=== PATIENT | male | born 1970 | race Caucasian/White ===

== ENCOUNTER → 2020-06-05 15:48 | Outpatient (CLI) | payer OTHER, SELFPAY ==
--- NOTE | 2020-06-05 | ECG_ITS ---
APPROVED REPORT Exam: Resting ECG HR:77 bpm ECG Measurements Heart Rate 77 AXES CA 144 P 52 QRSd 104 QRS -36 QT 400 T 51 QTc 452 Conclusion Sinus rhythm with occasional premature ventricular complexes Left axis deviation Abnormal ECG Electronically signed by : Teofilo Lennon, 06/06/2020 21:17:59
== END ==
PROVIDERS: PCP Family Medicine; Visit Provider Family Medicine
DX: I49.9 Cardiac arrhythmia, unspecified (principal)
CPT/HCPCS: 93005; 93225; 93226

== ENCOUNTER → 2020-06-18 10:46 | Outpatient (CLI) | payer OTHER, SELFPAY ==
--- NOTE | 2020-06-18 10:52 | CA_ITS ---
APPROVED REPORT EXAM: Comprehensive 2D, Doppler, and color-flow Echocardiogram Materials Supervisor: Jolly Jason RT(R) Ht: 6 ft 2 in Wt: 370lbs BSA: 2.82 BP: 131/87 mmHg Indications: smoker, PVC, h/o gastric bypass, NAZIA, abnormal EKG Echo Enhancing Agent Indication: Endocardial border delineation Agent(s) / Amount(s) Used: Definity 2 cc 2D Dimensions LVOT 1.87 cm (M/F) 1.5-2.5 LA Volume 37.80 mL LA Volume Index 13.40 mL/m2 (M/F) 16-34 M-Mode Dimensions RVDd 2.93 cm (0.9-2.6) LA Diam 3.11 cm (1.9-4.0) LVDd 4.98 cm (3.5-5.7) Ao Diam 3.79 cm (2.0-3.7) LVDs 3.99 cm (3.5-5.7) IVSd 1.03 cm (0.6-1.1) PWd 1.14 cm (0.6-1.1) EF (Teich) 40.60% FS 19.90% EDV (Teich) 117.10 mL ESV (Teich) 69.60 mL LV Diastology E Decel Time 173.00 (160-240 msec) E/A Ratio 0.8 MED E' 9.30 (< 7 cm/sec) E'/MED E' Ratio 6.77 (>14) LAT E' 12.30 (<10 cm/sec) E/LAT E' Ratio 5.12 (>14) Mitral Valve MV E Max Abhay. 63.00 (40-130 cm/s) MV A Velocity 81.00 (40-130 cm/s) E/A Ratio 0.78 MV Decel. Time 173.00 (160-240 ms) MV PHT 51.00 ms Left Ventricle Left atrium is mildly enlarged, left ventricle is normal size, left ventricle wall thickness is upper limit of normal, visually estimated ejection fraction 50%, with no regional wall motion abnormality, Definity contrast was utilized to delineate the endocardial surfaces. Doppler evidence of impaired LV relaxation seen, tissue Doppler is inconclusive Right Ventricle Right atrium and right ventricle are normal size and contractility. Aortic Valve Aortic valve is minimally thickened and fibrosed, there is no aortic stenosis or aortic insufficiency. Mitral Valve Mitral valve is grossly normal, there is trace mitral regurgitation. Tricuspid Valve Tricuspid grossly normal, there is trace tricuspid regurgitation, tricuspid regurgitation jet velocity is inadequate for calculation of the right ventricular systolic pressure. Pulmonic Valve Pulmonic valve is poorly visualized. Great Vessels Aortic root is normal size. Pericardium No significant pericardial effusion noted. Conclusion 1. Mildly enlarged left atrium, normal left ventricular size, visually estimated ejection fraction 50% with no regional wall motion abnormality, there is no left ventricular thrombus seen, Definity contrast was placed to delineate the endocardial surfaces, Doppler evidence of impaired LV relaxation seen. 2. Trace mitral and tricuspid regurgitation. 3. No significant pericardial effusion noted. Electronically signed by : Aashish Humphrey, 06/18/2020 21:18:22
== END ==
PROVIDERS: PCP Family Medicine; Visit Provider Family Medicine
DX: I49.8 Other specified cardiac arrhythmias (principal); I44.4 Left anterior fascicular block; I49.3 Ventricular premature depolarization; R94.31 Abnormal electrocardiogram [ECG] [EKG]; F17.200 Nicotine dependence, unspecified, uncomplicated; G47.33 Obstructive sleep apnea (adult) (pediatric); Z98.84 Bariatric surgery status
CPT/HCPCS: 93306; Q9957

== ENCOUNTER → 2020-07-16 20:07 | Outpatient (CLI) | payer OTHER, SELFPAY | PROVIDERS: PCP Family Medicine; Visit Provider Nurse Practitioner Family | DX: G47.33 Obstructive sleep apnea (adult) (pediatric) (principal); G47.36 Sleep related hypoventilation in conditions classified elsewhere | CPT/HCPCS: 95810 ==

== ENCOUNTER → 2020-08-15 07:41 | Outpatient (CLI) | payer SELFPAY ==
--- NOTE | 2020-08-15 07:41 | CT_ITS ---
PROCEDURE: CT HEART W CALCIUM SCORE CLINICAL HISTORY: abnormal ekg COMPARISON: No exams were available for comparison TECHNIQUE: Axial images obtained with sagittal and coronal reformats. All CT scans at the facility use one or more dose reduction, viz: automated exposure control, ma/kV adjustment per patient size (including targeted exams where dose is matched to indication, i.e. head), or iterative reconstruction technique. FINDINGS: The coronary artery calcium score is 630. Extensive calcific plaque burden with very high cardiovascular disease risk IMPRESSION: Extensive calcific plaque burden with very high cardiovascular disease risk Dictated by: Mihai Sears MD 08/15/2020 16:19 Mihai Sears MD in [place] 08/15/2020 16:19
== END ==
PROVIDERS: PCP Family Medicine; Visit Provider Internal Medicine Cardiovascular Disease
DX: Z13.6 Encounter for screening for cardiovascular disorders (principal); R94.31 Abnormal electrocardiogram [ECG] [EKG]; I44.4 Left anterior fascicular block; I49.3 Ventricular premature depolarization; I49.8 Other specified cardiac arrhythmias; F17.200 Nicotine dependence, unspecified, uncomplicated; G47.33 Obstructive sleep apnea (adult) (pediatric); Z98.84 Bariatric surgery status
CPT/HCPCS: 75571

== ENCOUNTER → 2020-08-20 20:13 | Outpatient (CLI) | payer OTHER, SELFPAY | PROVIDERS: PCP Family Medicine; Visit Provider Nurse Practitioner Family | DX: G47.33 Obstructive sleep apnea (adult) (pediatric) (principal); R06.83 Snoring; E66.9 Obesity, unspecified | CPT/HCPCS: 95811 ==

== ENCOUNTER → 2020-09-12 07:43 | Outpatient (CLI) | payer OTHER, SELFPAY ==
--- NOTE | 2020-09-12 07:45 | NM_ITS ---
APPROVED REPORT Exam: Nuclear Stress Test Indication: chest pain..palpitations..abn ekg Patient Location: Outpatient Stress Tech: Deloris Giles [facility] Tech:MONIKA Alejo RT(R)(N) Ht: 6 ft 2 in Wt: 375 lbs HR: 72 bpm BP: 106/66 mmHg BSA: 2.84 m2 BMI: 48.1 History: chest pain..palpitations..abn ekg Procedure: Patient exercised on Mick protocol 6 minutes and sec, resting heart rate 72 bpm, resting blood pressure 106/66 mmHg, with exercise maximum heart rate achived was 161 bpm which is 95 % of the maximum predicted heart rate and blood pressure was 170/78 mmHg. Patient denied any complaint of chest pain. Patient has Adequate exercise capacity, achieved 7.0 METs of workload on treadmill, the blood pressure response to exercise was Adequate. pt was unable to lay on his belly for the prone imaging Electrocardiogram Resting electrocardiogram shows sinus rhythm, with exercise there is less than 1.[address] segment depression noted from the baseline EKG. The EKG portion of the exercise Myoview is negative for ischemia. Cardiac Stress and Resting SPECT Images: Cardiac Stress and Resting SPECT images were obtained using technetium 99m Myoview 32.3 mCi stress and 10.03 mCi at rest. Gated SPECT for analysis of segmental wall motion and calculation of the ejection fraction also done. Cardiac stress and resting SPECT images show a partial reversible defect involving the inferior wall consistent with mixed ischemia and scar, computer derived ejection fraction is 50% with moderate inferior wall hypokinesis, right ventricle is normal size and contractility. Conclusion: 1. The EKG portion of the exercise Myoview is negative for ischemia, patient has adequate exercise capacity achieved 7 mets of workload on treadmill, the blood pressure response to exercise was adequate, test was stopped due to shortness of breath patient had complained of chest pain 2. Scintigraphic evidence of mixed ischemia and scar involving a moderate sized area in the inferior wall, computer derived ejection fraction 50% with segmental wall motion abnormality described above, right ventricle is normal size and contractility. 3. Abnormal exercise Myoview study. Electronically signed by : Aashish Humphrey MD 09/12/2020 13:56:57
--- NOTE | 2020-09-12 09:55 | CA_ITS ---
APPROVED REPORT Exam: Exercise Treadmill Technologist: Deloris Giles, Ht: 6 ft 2 in Wt: 371 lbs BSA: 2.83 m2 HR: 72 bpm BP: 106/66 mmHg Medical History Medications: Aspirin,,,,, Vitamin B Complex,,,,, CetIRazine,,,,, Cariprazine,,,,, Stress Test Details Test: Mick HR Resting HR: 80 bpm Max Heart Rate (APMHR): 170.577665 bpm Max HR Achieved: 161 bpm Target HR (85% APMHR): 144.818014 bpm % of APMHR: 94.71 Recovery HR: 98 bpm BP Resting BP: 103/59 mmHg Max BP: 170/78 mmHg Recovery BP: 119.0/70.0 mmHg ECG Resting ECG: NSR, slow R wave progression, NS ST-T abn inferiorly Clinical Exercise duration: 06:01 min Highest Stage Achieved: Exercise capacity: 7.0 METs Stress ECG Conclusion Exercised 6:00 on Mick Protocol Max HR: 161 % of PM: 95% Max BP: 170/78 MET's: 7.0 Stopped due to: SOA, Fatigue Symptoms: No CP Arrhythmias/Ectopy: Occ PVC and fusion beat. One vent. couplet ST-T Changes: Allowing for motion artifact, the ST response to exercise is within normal. Conclusion: Normal GXT. Myoview images reported separately. Test Summary REST . . . . . . . Sitting REST . . . . . . . Standing REST 05:30 0.0 0.0 80 . 103/ 59 . . Stage 1 01:00 10.0 1.7 107 . . . . Stage 1 02:00 10.0 1.7 115 . . . . Stage 1 03:00 10.0 1.7 117 . . . . Stage 2 01:00 12.0 2.5 137 . . . . Stage 2 . . . . . . . Cardiolite injected Stage 2 02:00 12.0 2.5 146 . . . . Stage 2 03:00 12.0 2.5 161 . . . . Stage 3 00:01 14.0 3.4 160 . . . Stop exercise at 06:01 RECOVERY 01:00 0.0 0.0 136 . . . . RECOVERY 02:00 0.0 0.0 115 . 170/ 78 . . RECOVERY 03:00 0.0 0.0 105 . 170/ 78 . . RECOVERY 04:00 0.0 0.0 99 . 121/ 68 . . RECOVERY 05:00 0.0 0.0 96 . 119/ 70 . . RECOVERY 05:20 0.0 0.0 94 . 119/ 70 . . Electronically signed by : Aashish Humphrey MD 09/12/2020 13:53:22
== END ==
PROVIDERS: PCP Family Medicine; Visit Provider Internal Medicine Cardiovascular Disease
DX: R94.31 Abnormal electrocardiogram [ECG] [EKG] (principal); I44.4 Left anterior fascicular block; I49.3 Ventricular premature depolarization; I49.8 Other specified cardiac arrhythmias; F17.200 Nicotine dependence, unspecified, uncomplicated; G47.33 Obstructive sleep apnea (adult) (pediatric); Z98.84 Bariatric surgery status
CPT/HCPCS: 78452; 93017; A9502

== ENCOUNTER → 2020-09-17 09:25 | Outpatient (CLI) | payer OTHER, SELFPAY ==
[2020-09-17 10:24] LABS: Basophils # 0.1 K/mm3 (0-0.2); Basophils % 1.3 % (0.1-2.0); Eosinophils # 0.4 K/mm3 (0.0-0.4); Eosinophils % 5.1 % (0.1-12.0); Hematocrit 45.2 % (42.0-52.0); Hemoglobin 15.5 g/dL (14.1-18.0); Lymphocytes # 1.8 K/mm3 (0.7-4.5); Lymphocytes % 22.2 % (10-50); Mean Corpuscular HGB Conc 34.3 g/dL (31.8-35.4); Mean Corpuscular Volume 90.3 fl (80-94); Mean Platelet Volume 8.4 fl (7.4-10.4); Monocytes # 0.4 K/mm3 (0.1-1.0); Monocytes % 5.3 % (1.7-9.3); Neutrophils # 5.4 K/mm3 (1.8-7.8); Neutrophils % 66.1 % (37.0-80.0); Platelet Count 291 K/mm3 (142-424); Red Blood Count 5.01 M/mm3 (4.60-6.20); Red Cell Distribution Width 13.7 % (11.5-17.5); White Blood Count 8.1 K/mm3 (4.8-10.8)
[2020-09-17 10:42] LABS: Chloride 104 mmol/L (98-107); Sodium 141 mmol/L (136-145)
[2020-09-17 10:43] LABS: Potassium 4.4 mmoL/L (3.5-5.1)
[2020-09-17 10:45] LABS: Blood Urea Nitrogen 11 mg/dl (9-20); Estimated Glomerular Filt Rate 119 ml/min (>60); GFR (African American) 144 ML/MIN (>60)
[2020-09-17 10:46] LABS: Anion Gap 12.4 mEq/L (5-15); Carbon Dioxide 29 mmol/L (22.0-30.0); Glucose 145 mg/dl (74-100)
== END ==
PROVIDERS: Visit Provider Internal Medicine Cardiovascular Disease
DX: Z01.812 Encounter for preprocedural laboratory examination (principal); Z11.52 Encounter for screening for COVID-19; R94.39 Abnormal result of other cardiovascular function study
CPT/HCPCS: 36415; 80048; 85025; U0003

== ENCOUNTER 2020-09-18 09:19 | Day surgery (SDC) | payer OTHER, SELFPAY ==
[2020-09-18] VITALS (11 sets, daily range): BP systolic 97–149; BP diastolic 57–85; PULSE 64–85; RESP 13–19; TEMP 36.8–36.9; O2SAT 95–99; BMI 47.2
--- NOTE | 2020-09-18 07:28 | IR_ITS ---
APPROVED REPORT Patient Location: Outpatient Marine Firer: MONIKA Snell RT (R) PROCEDURES Left heart catheterization Left ventriculogram Selective coronary angiogram INDICATION Abnormal Myoview, High calcium score, Informed consent was obtained prior to the procedure. COMPLICATIONS NONE Estimated Blood Loss: LESS THAN 10 ML TECHNIQUE One percent lidocaine used to anesthetize the right anterior aspect of the wrist. The right radial artery was accessed via the Seldinger technique. A 6 Albanian sheath was placed in the right radial artery. 2.5 mg of verapamil, 800 mcg of nitroglycerin, 1mg Lidocaine and 5000 U Heparin were given through the arterial sheath. The Poppa catheter was also used to perform left heart catheterization, left ventriculogram and selective coronary angiogram. At the end of the procedure the sheath was removed good hemostasis was achieved using Traclet band, patient was transferred to the postop holding area in stable condition. ANGIOGRAPHIC RESULTS The left main artery Normal The left anterior descending artery Mild proximal and mid vessel 10% luminal irregularities The circumflex artery Nondominant with mild diffuse 10% luminal irregularities The right coronary artery Large dominant with diffuse 10% luminal irregularities The MARTÍNEZ ventriculogram reveals Dilated ventricle ejection fraction 50% The left ventricular end-diastolic pressure 20 mmHg IMPRESSION Nonflow limiting coronary disease as described above Dilated ventricle with slightly reduced ejection fraction Elevated LVEDP PLAN 1. Medical management Electronically signed by : Gary Santizo MD 09/18/2020 11:22:06
== END 2020-09-18 14:19 | disposition home or self-care (01) ==
LOC: CATHLAB 09:20
PROVIDERS: PCP Family Medicine; Visit Provider Internal Medicine
DX: R93.1 Abnormal findings on diagnostic imaging of heart and coronary circulation (principal); F17.210 Nicotine dependence, cigarettes, uncomplicated; G47.33 Obstructive sleep apnea (adult) (pediatric); I49.3 Ventricular premature depolarization; R94.39 Abnormal result of other cardiovascular function study; Z98.84 Bariatric surgery status; I25.10 Atherosclerotic heart disease of native coronary artery without angina pectoris; Z79.899 Other long term (current) drug therapy
CPT/HCPCS: 93458; 99152; C1725; C1760; C1769; J1644; Q9967

== ENCOUNTER → 2020-10-24 13:55 | Outpatient (CLI) | payer OTHER, SELFPAY ==
[2020-10-24 14:57] LABS: Anion Gap 16.1 mEq/L (5-15); Blood Urea Nitrogen 12 mg/dl (9-20); Calcium 9.1 mg/dl (8.4-10.2); Carbon Dioxide 29 mmol/L (22.0-30.0); Chloride 98 mmol/L (98-107); Estimated Glomerular Filt Rate 119 ml/min (>60); GFR (African American) 144 ML/MIN (>60); Glucose 121 mg/dl (74-100); Potassium 4.1 mmoL/L (3.5-5.1); Sodium 139 mmol/L (136-145)
== END ==
PROVIDERS: Visit Provider Internal Medicine Cardiovascular Disease
DX: I25.10 Atherosclerotic heart disease of native coronary artery without angina pectoris (principal); R94.31 Abnormal electrocardiogram [ECG] [EKG]; I44.4 Left anterior fascicular block; G47.33 Obstructive sleep apnea (adult) (pediatric); F17.200 Nicotine dependence, unspecified, uncomplicated; Z98.84 Bariatric surgery status
CPT/HCPCS: 36415; 80048

== ENCOUNTER → 2021-03-05 09:59 | Outpatient (CLI) | payer OTHER, SELFPAY ==
[2021-03-05 11:05] LABS: Alanine Aminotransferase 44 U/L (12-78); Albumin Level 4.4 g/dl (3.5-5.0); Albumin/Globulin Ratio 1.6 (1.1-1.8); Alkaline Phosphatase 72 U/L (38-126); Aspartate Amino Transferase 43 U/L (17-59); Bilirubin,Total 0.3 mg/dl (0.2-1.3); Blood Urea Nitrogen 12 mg/dl (9-20); Calcium 9.4 mg/dl (8.4-10.2); Carbon Dioxide 31 mmol/L (22.0-30.0); Chloride 102 mmol/L (98-107); Estimated Glomerular Filt Rate 119 ml/min (>60); GFR (African American) 144 ML/MIN (>60); Globulin 2.8 g/dL (1.3-3.2); Glucose 162 mg/dl (74-100); Sodium 140 mmol/L (136-145); Total Protein,Serum 7.2 g/dl (6.3-8.2)
[2021-03-05 11:20] LABS: Basophils # 0.1 K/mm3 (0-0.2); Basophils % 1.1 % (0.1-2.0); Eosinophils # 0.4 K/mm3 (0.0-0.4); Eosinophils % 4.6 % (0.1-12.0); Hematocrit 46.4 % (42.0-52.0); Hemoglobin 15.7 g/dL (14.1-18.0); Lymphocytes # 1.9 K/mm3 (0.7-4.5); Lymphocytes % 22.3 % (10-50); Mean Corpuscular HGB Conc 33.9 g/dL (31.8-35.4); Mean Corpuscular Hemoglobin 31.2 pg (27.0-31.2); Mean Corpuscular Volume 91.9 fl (80-94); Mean Platelet Volume 7.8 fl (7.4-10.4); Monocytes # 0.5 K/mm3 (0.1-1.0); Monocytes % 5.4 % (1.7-9.3); Neutrophils # 5.5 K/mm3 (1.8-7.8); Neutrophils % 66.6 % (37.0-80.0); Platelet Count 298 K/mm3 (142-424); Red Blood Count 5.05 M/mm3 (4.60-6.20); Red Cell Distribution Width 13.4 % (11.5-17.5); White Blood Count 8.3 K/mm3 (4.8-10.8)
[2021-03-05 11:26] LABS: Free Thyroxine Index 2.6 ug/dL (5.93-13.13); T4 (Thyroxine) 9.4 ug/dl (5.53-11.0); Triiodothryronine (T3) Uptake 28 % (23.5-40.5)
[2021-03-05 11:35] LABS: Hemoglobin A1C 6.3 % (4.0-6.0)
[2021-03-05 11:39] LABS: Thyroid Stimulating Hormone 1.45 uIU/mL (0.465-4.68)
[2021-03-05 11:56] LABS: Vitamin B12 943 pg/mL (239-931)
[2021-03-05 12:09] LABS: Iron 91 ug/dL (49-181)
[2021-03-05 12:13] LABS: Total Iron Binding Capacity 371 ug/dL (261-462)
[2021-03-09 18:42] LABS: Testosterone, Total, LC/MS 31.4 ng/dL (264.0-916.0); Testosterone,Free 0.9 pg/mL (7.2-24.0)
[2021-03-14 16:13] LABS: 1,25 Dihydroxy Vitamin D 61 pg/mL (.); 1,25-Dihydroxy, Vitamin D-2 <10 pg/mL (.); 1,25-Dihydroxy, Vitamin D-3 61 pg/mL (.)
== END ==
PROVIDERS: PCP Family Medicine; Visit Provider Nurse Practitioner Psychiatric/Mental Health
DX: Z00.00 Encounter for general adult medical examination without abnormal findings (principal); R53.83 Other fatigue; Z79.899 Other long term (current) drug therapy
CPT/HCPCS: 36415; 80053; 82607; 82652; 83036; 83540; 83550; 84402; 84403; 84436; 84443; 84479; 85025

== ENCOUNTER → 2021-10-24 10:29 | Outpatient (CLI) | payer OTHER, SELFPAY ==
[2021-10-24 11:43] LABS: Alanine Aminotransferase 55 U/L (12-78); Alkaline Phosphatase 93 U/L (38-126); Aspartate Amino Transferase 51 U/L (17-59); Chol/HDL Ratio 3.5 (1-3.5); Cholesterol 121 mg/dl (140-200); HDL Cholesterol 35 mg/dl (40-60); Total Protein,Serum 6.7 g/dl (6.3-8.2); Triglycerides 240 mg/dl (30-150); VLDL Cholesterol 48 mg/dL (0-40)
[2021-10-24 11:46] LABS: Bilirubin,Total < 0.1 mg/dl (0.2-1.3)
[2021-10-24 11:55] LABS: Direct LDL Cholesterol 62.48 mg/dL (100-129)
[2021-10-24 12:23] LABS: Bilirubin,Indirect 0.1 mg/dL (0.0-0.9)
== END ==
PROVIDERS: PCP Family Medicine; Visit Provider Internal Medicine Cardiovascular Disease
DX: I25.10 Atherosclerotic heart disease of native coronary artery without angina pectoris (principal); I44.4 Left anterior fascicular block; E78.5 Hyperlipidemia, unspecified; F17.200 Nicotine dependence, unspecified, uncomplicated; G47.33 Obstructive sleep apnea (adult) (pediatric); R93.1 Abnormal findings on diagnostic imaging of heart and coronary circulation; R94.31 Abnormal electrocardiogram [ECG] [EKG]
CPT/HCPCS: 36415; 80061; 80076

== ENCOUNTER 2024-01-21 12:40 | Outpatient (CLI) | payer OTHER, SELFPAY ==
--- NOTE | 2024-01-21 12:42 | CT_ITS ---
FINAL REPORT CLINICAL HISTORY: SCREENING previous smoker cigarettes 1 ppd x 20 years quit 5 years ago current smoker cigars , 3 cigars per day x 5 years FINDINGS: CTDI vol (mGy): 2.90 DLP: 114.[address] images of the chest were obtained using the low-dose protocol for screening.Mild coronary artery calcifications are seen. There is mild thickening of the distal esophagus which is nonspecific, favor inflammatory. There is no evidence of mediastinal or hilar mass or adenopathy. No axillary mass or adenopathy is identified. On the lung window images, a 7 mm nodule is seen in the right lower lobe on series 3, image 52. There are several calcified granulomas. IMPRESSION: 7 mm right lower lobe pulmonary nodule. Esophageal wall thickening, favor inflammatory. Recommend comparison to upper endoscopy. Lung RADS category 3S. Recommend 6 month followup low-dose CT for further evaluation. Reviewed, Interpreted and Dictated by Denys Joel III, MD Transcribed by Stefany Medina Authenticated and [facility]
== END 2024-01-21 23:59 | disposition home or self-care (01) ==
LOC: RAD 12:41
PROVIDERS: PCP Family Medicine; Visit Provider Family Medicine
DX: F17.290 Nicotine dependence, other tobacco product, uncomplicated (principal)
CPT/HCPCS: 71271

== ENCOUNTER 2024-02-25 13:54 | Outpatient (CLI) | payer OTHER, SELFPAY ==
--- NOTE | 2024-02-25 13:55 | MR_ITS ---
FINAL REPORT TECHNIQUE: Multiplanar MR without contrast CLINICAL HISTORY: memory loss visual changes in right eye confusion FINDINGS: Diffusion sequences show no signal abnormality to indicate acute infarct. No mass, hemorrhage or edema is seen. Ventricles are normal. Major vascular flow voids are intact. There is partial opacification of the bilateral ethmoid air cells and left frontal sinus compatible with mild sinusitis. IMPRESSION: No acute intracranial abnormality. Reviewed, Interpreted and Dictated by Milana Oshea MD Transcribed by María Mckeon Authenticated and [facility]
== END 2024-02-25 23:59 | disposition home or self-care (01) ==
LOC: RAD 13:55
PROVIDERS: PCP Family Medicine; Visit Provider Specialist
DX: G93.49 Other encephalopathy (principal)
CPT/HCPCS: 70551

== ENCOUNTER → 2024-04-04 20:20 | Outpatient (CLI) | payer OTHER, SELFPAY | LOC: SL 20:22 | PROVIDERS: PCP Psychiatry & Neurology Sleep Medicine; Visit Provider Specialist | DX: G47.33 Obstructive sleep apnea (adult) (pediatric) (principal); G93.49 Other encephalopathy | CPT/HCPCS: 95811 ==

== ENCOUNTER 2024-04-26 10:30 | Outpatient (CLI) | payer OTHER, SELFPAY ==
[2024-04-26 10:39] LABS: Anti-Centromere B Antibodies ND; Anti-DNA (DS) Ab Qn ND; Anti-Jo-1 ND; Antichromatin Antibodies ND; Antiscleroderma-70 Antibodies ND; RNP Antibodies ND; Sjogren's Anti-SS-A ND; Sjogren's Anti-SS-B ND
[2024-04-26 11:25] LABS: Albumin Level 4.4 g/dl (3.5-5.0)
[2024-04-26 11:26] LABS: Albumin Level 4.4 g/dl (3.5-5.0); Chloride 103 mmol/L (98-107); Potassium 4.2 mmoL/L (3.5-5.1); Sodium 139 mmol/L (136-145)
[2024-04-26 11:28] LABS: Alanine Aminotransferase 46 U/L (12-78); Alkaline Phosphatase 86 U/L (38-126); Aspartate Amino Transferase 42 U/L (17-59); Bilirubin,Indirect 0.4 mg/dL (0.0-0.9); Bilirubin,Total 0.4 mg/dl (0.2-1.3); Bilirubin,Unconjugated 0.4 mg/dL (0.0-1.1); Cholesterol 109 mg/dl (140-200); HDL Cholesterol 36 mg/dl (40-60); Total Protein,Serum 6.9 g/dl (6.3-8.2); Triglycerides 178 mg/dl (30-150); VLDL Cholesterol 36 mg/dL (0-40)
[2024-04-26 11:29] LABS: Alanine Aminotransferase 45 U/L (12-78); Albumin/Globulin Ratio 1.8 (1.1-1.8); Alkaline Phosphatase 82 U/L (38-126); Anion Gap 9.2 mEq/L (5-15); Aspartate Amino Transferase 41 U/L (17-59); Bilirubin,Total 0.4 mg/dl (0.2-1.3); Blood Urea Nitrogen 13 mg/dl (9-20); Calcium 9.2 mg/dl (8.4-10.2); Carbon Dioxide 31 mmol/L (22.0-30.0); Estimated Glomerular Filt Rate 118 ml/min (>60); GFR (African American) 142 ML/MIN (>60); Globulin 2.5 g/dL (1.3-3.2); Glucose 105 mg/dl (74-100); Total Protein,Serum 6.9 g/dl (6.3-8.2)
[2024-04-26 11:39] LABS: Direct LDL Cholesterol 53.02 mg/dL (100-129)
[2024-04-26 11:44] LABS: Free T4 (Free Thyroxine) 0.91 ng/dl (0.78-2.19)
[2024-04-26 11:56] LABS: Thyroid Stimulating Hormone 1.53 uIU/mL (0.465-4.68)
[2024-04-26 12:43] LABS: Vitamin B12 778 pg/mL (239-931)
[2024-04-26 13:06] LABS: Folate > 20.00 ng/mL
[2024-04-26 14:10] LABS: Erythrocyte Sedimentation Rate 36 mm/hr (0-20)
[2024-04-26 14:18] LABS: Basophils # 0.1 K/mm3 (0-0.2); Eosinophils # 0.4 K/mm3 (0.0-0.4); Eosinophils % 3.8 % (0.1-12.0); Hematocrit 47.9 % (42.0-52.0); Hemoglobin 16.5 g/dL (14.1-18.0); Lymphocytes % 20.1 % (10-50); Mean Corpuscular HGB Conc 34.4 g/dL (31.8-35.4); Mean Corpuscular Hemoglobin 31.4 pg (27.0-31.2); Mean Corpuscular Volume 91.1 fl (80-94); Mean Platelet Volume 10.6 fl (7.4-10.4); Monocytes # 0.7 K/mm3 (0.1-1.0); Monocytes % 7.1 % (1.7-9.3); Neutrophils # 6.7 K/mm3 (1.8-7.8); Neutrophils % 67.6 % (37.0-80.0); Platelet Count 273 K/mm3 (142-424); Red Blood Count 5.26 M/mm3 (4.60-6.20); Red Cell Distribution Width 13.4 % (11.5-17.5); White Blood Count 9.8 K/mm3 (4.8-10.8)
[2024-04-27 00:32] LABS: RPR W/RFX Titers Nonreactive (Nonreactive)
[2024-04-27 11:12] LABS: Antinuclear Antibodies (ANA) Negative (Negative)
== END 2024-04-26 23:59 | disposition home or self-care (01) ==
LOC: LAB 10:30
PROVIDERS: Specialist; PCP Family Medicine; Visit Provider Physician Assistant
DX: I25.10 Atherosclerotic heart disease of native coronary artery without angina pectoris (principal); E78.5 Hyperlipidemia, unspecified; G93.49 Other encephalopathy; Z86.39 Personal history of other endocrine, nutritional and metabolic disease; F33.9 Major depressive disorder, recurrent, unspecified; Z98.84 Bariatric surgery status; G47.33 Obstructive sleep apnea (adult) (pediatric)
CPT/HCPCS: 36415; 80053; 80061; 80076; 82607; 82746; 84439; 84443; 85025; 85651; 86038; 86592

== ENCOUNTER 2024-04-27 12:00 | Day surgery (SDC) | payer OTHER, SELFPAY ==
[2024-04-27 08:39] VITALS: BMI 48.1
[2024-04-27 12:59] VITALS: BP 110/67; PULSE 70; RESP 18; O2SAT 95
--- NOTE | 2024-04-27 13:26 | P.PNANES_ITS ---
[facility] Disclaimer: The information contained in this section may have been updated after the patient was seen, as this information can be updated by other users. Medical History History of type 2 diabetes mellitus History of vitamin D deficiency Mood disorder Major depressive disorder HLD (hyperlipidemia) Agatston coronary artery calcium score greater than 400 Abnormal cardiovascular stress test Left anterior fascicular block Abnormal EKG NAZIA (obstructive sleep apnea) Tobacco dependence syndrome Bigeminy PVC (premature ventricular contraction) Surgical History History of carpal tunnel surgery History of cardiac cath History of sleeve gastrectomy Family History Other Diabetes Social History (Updated 04/27/24 @ 13:06 by Daisy De Oliveira RN) Smoking Status: Current every day smoker smoking status start date: 2015 alcohol intake: current alcohol intake frequency: holidays/special occasions only substance use type: marijuana current occupational status: employed Travel in the last 8 weeks: None housing: house marital status: number of children: 2 current occupational exposures/hazards: Yes caffeine: Yes Have you lived/traveled outside [place] in past 30 days?: No Contact w/someone who lives/traveled outside US past 30 days?: No Exposure to someone with infectious disease in past 14 days?: No Do you have a fever (greater than 100.4 F or 38 C)?: No Have you tested positive for COVID-19: No Exposed to someone with COVID-19 in past 14 days?: No Do you have a sore throat?: No Do you have a cough?: No Do you have any weakness?: No Are you experiencing any nausea/vomitting?: No Do you have any diarrhea?: No Are you experiencing any unusual bleeding?: No Do you have any muscle aches/pain?: No Do you have any abdominal pain?: No Are you experiencing loss of taste or smell?: No [facility] Anesthesia Checklist Patient Identification Patient Identification: Arm Band Structural Data Admitted From: Home Planned Operative Procedure/s: EGD Consent for Planned Operative Procedure(s) Verified: Yes Verified Documents: Surgical Consent and History and Physical NPO Status Verified Time NPO: 00:00 Additional verifications Anesthesia Reactions: No Airway Assessment Mallampati Score:: Class II C-Spine Mobility Assessed: Yes TMJ Mobility Assessed: Yes Dentition: Good Dentition Neurological Assessment Level of Consciousness: Awake, Alert and Appropriate Anesthesia Plan Anesthesia Risk discussed: Yes Anesthesia Plan: Verified ASA Class: III Anesthesia Type: MAC
[2024-04-27] MEDS: LACTATED RINGERS 1000ML 1,000 ML 50 ML IV (13:27)
[2024-04-27 13:59] VITALS: O2SAT 100
--- NOTE | 2024-04-27 14:06 | P.HP_ITS ---
History of Present Illness *Admission Date: 04/27/24 *History of present illness: Mr. Kruse is a 54-year-old gentleman who is here for diagnostic EGD. He underwent CAT scan of the chest on 01/21/2024. There was a small 7 mm right lower lobe pulmonary nodule. There was also evidence of esophageal wall thickening in the distal esophagus which was nonspecific. The patient reports no heartburn, reflux or dysphagia. He is not having any digestive difficulties. The patient did have a gastric sleeve surgery in 2017 with repair of a hiatal hernia (Dr. Monreal and Dr. Bains?bariatric surgery). He has had prior EGDs but his last EGD was in 2017. He reports no family history of esophageal or gastric cancer. He was a former smoker. The patient reports no unintentional weight loss. He does get some early satiety related to his surgery. He is now on Victoza(liraglutide). [facility] Disclaimer: The information contained in this section may have been updated after the patient was seen, as this information can be updated by other users. Medical History History of type 2 diabetes mellitus History of vitamin D deficiency Mood disorder Major depressive disorder HLD (hyperlipidemia) Agatston coronary artery calcium score greater than 400 Abnormal cardiovascular stress test Left anterior fascicular block Abnormal EKG NAZIA (obstructive sleep apnea) Tobacco dependence syndrome Bigeminy PVC (premature ventricular contraction) Surgical History History of carpal tunnel surgery History of cardiac cath History of sleeve gastrectomy Family History Other Diabetes Social History (Updated 04/27/24 @ 13:06 by Daisy De Oliveira RN) Smoking Status: Current every day smoker smoking status start date: 2015 alcohol intake: current alcohol intake frequency: holidays/special occasions only substance use type: marijuana current occupational status: employed Travel in the last 8 weeks: None housing: house marital status: number of children: 2 current occupational exposures/hazards: Yes caffeine: Yes Have you lived/traveled outside [place] in past 30 days?: No Contact w/someone who lives/traveled outside [place] past 30 days?: No Exposure to someone with infectious disease in past 14 days?: No Do you have a fever (greater than 100.4 F or 38 C)?: No Have you tested positive for COVID-19: No Exposed to someone with COVID-19 in past 14 days?: No Do you have a sore throat?: No Do you have a cough?: No Do you have any weakness?: No Are you experiencing any nausea/vomitting?: No Do you have any diarrhea?: No Are you experiencing any unusual bleeding?: No Do you have any muscle aches/pain?: No Do you have any abdominal pain?: No Are you experiencing loss of taste or smell?: No Other Medical History Have you received the Flu Vaccine for this season: Yes Have you received the Pneumonia Vaccine: No Review of Systems Review of Systems Review of systems (narrative): Negative *Cardiovascular Comments: Negative *Gastrointestinal Comments: Negative *Genitourinary Comments: Negative *Musculoskeletal Comments: Negative *Neurologic Comments: Negative Meds Home Medications and Allergies Home Medications ?Medication ?Instructions ?Recorded ?Confirmed ?Type vitamin B complex (B 1 tab PO DAILY VITAMIN 02/11/18 04/27/24 History Complex-Vitamin B12 tablet) aspirin 81 mg tablet,delayed 81 mg PO DAILY Blood thinner 06/13/20 04/27/24 History release metformin 500 mg tablet 500 mg PO DAILY 04/24/22 04/27/24 History rosuvastatin 20 mg tablet See Rx Instructions .Route 10/13/22 04/27/24 Rx .COMPLEX #90 tabs liraglutide 0.6 mg/0.1 mL (18 mg/3 1.8 mg SQ DAILY 10/29/22 04/27/24 History mL) subcutaneous pen injector (Victoza 2-Chente) losartan 50 mg-hydrochlorothiazide See Rx Instructions .Route 02/08/24 04/27/24 Rx 12.5 mg tablet .COMPLEX #90 tabs sildenafil 50 mg tablet 100 mg PO DAILY PRN . 02/15/24 04/26/24 History desvenlafaxine succinate 100 mg 100 mg PO DAILY #90 tabs 02/17/24 04/27/24 Rx tablet,extended release 24 hr (Pristiq) desvenlafaxine succinate 50 mg 50 mg PO DAILY #90 tabs 02/17/24 04/27/24 Rx tablet,extended release 24 hr (Pristiq) metoprolol succinate 25 mg See Rx Instructions .Route 02/21/24 04/27/24 Rx tablet,extended release 24 hr .COMPLEX #90 tabs B-complex with vitamin C 1 cap PO DAILY 03/14/24 04/27/24 History multivitamin 1 tab PO DAILY 03/14/24 04/27/24 History New Prescriptions to Start Prescriptions: Allergies Allergy/AdvReac Type Severity Reaction Status Date / Time No Known Allergies Allergy Verified 04/27/24 12:54 Exam Data for Last 24 hours Vital signs and Labs for Last 24 Hours: Pulse Resp BP Pulse Ox O2 Del Method O2 Flow Rate 70 18 110/67 95 Simple Mask 5 04/27/24 12:59 04/27/24 12:59 04/27/24 12:59 04/27/24 12:59 04/27/24 13:59 04/27/24 13:59 I & O for Last 24 hours: Intake & Output 04/24/24 04/25/24 04/26/24 04/27/24 23:59 23:59 23:59 23:59 Weight 365 lb *Routine HEENT Exam Head: Present normocephalic Eye: Present EOMI and PERRL ENT: Present mucous membranes moist *Routine Neck Exam Neck: Present supple *Routine Respiratory Exam Respiratory: Present CTA bilaterally *Routine Cardiovascular Exam Cardiovascular: Present RRR *Routine Abdominal Exam Abdominal: Present soft and normoactive bowel sounds; Absent tenderness *Routine Rectal Exam Rectal:: deferred *Routine Genitalia Exam Genitalia:: deferred *Routine Extremities Exam Extremities: Absent cyanosis, clubbing or edema *Routine Skin Exam Skin: Present warm; Absent rash *Routine Neurological Exam Neurological: Present alert and oriented X3 Assessment and Plan *Assessment and plan (1) Abnormal CT scan, esophagus: Status: Acute Category: Medical Code(s): R93.3 - Abnormal findings on diagnostic imaging of other parts of digestive tract (2) Esophageal thickening: Status: Acute Category: Medical Code(s): K22.89 - Other specified disease of esophagus Plan A/P: 1. Abnormal CT scan esophagus with esophageal thickening is the preprocedural diagnosis. The patient will be anesthetized/sedated using MAC sedation. The patient has been seen and examined. Cardiac and lung assessment prior to the examination is stable. Proceed with planned diagnostic EGD
--- NOTE | 2024-04-27 14:08 | P.PCN_ITS ---
[facility] Procedure Note Date: 04/27/24 Time: 14:18 Procedure Note:: Upper Endoscopy Procedure Report: Esophagogastroduodenoscopy with cold biopsies Endoscopost: Leroy Erwin II, MD Referring Physician: Allen Canales MD Date of Procedure: April 27, 2024 Equipment: Olympus GIF 190 standard upper endoscope Sedation: MAC sedation Indications: Mr. Kruse is a 54-year-old gentleman who is here for diagnostic upper endoscopy. He underwent CAT scan of the chest on 01/21/2024. There was a small 7 mm right lower lobe pulmonary nodule. There was also evidence of esophageal wall thickening in the distal esophagus which was nonspecific. The patient reports no heartburn, reflux or dysphagia. He is not having any digestive difficulties. The patient did have a gastric sleeve surgery in 2017 with repair of a hiatal hernia (Dr. Monreal and Dr. Bains?bariatric surgery). He has had prior EGDs but his last EGD was in 2017. He reports no family history of esophageal or gastric cancer. He was a former smoker. The patient reports no unintentional weight loss. He does get some early satiety related to his surgery. He is now on Victoza(liraglutide). Procedure: Prior to the procedure, a history and physical exam was performed, and patient's medications and allergies were reviewed. The risks, benefits and alternatives of the sedation and procedure were discussed with the patient. All questions were answered and informed consent was obtained. The patient was brought to the procedure room. Patient identification and proposed procedure were verified by the physician and the nurse. The patient was placed in a left lateral decubitus position and the scope was passed under direct vision. Throughout the procedure, the patient's blood pressure, pulse, and oxygen saturations were monitored continuously. The upper GI endoscopy was accomplished without difficulty. The patient tolerated the procedure well. Findings: The scope was passed directly into the upper esophagus and advanced to the third portion of the duodenum. In the third portion there was a bulbous submucosal nodule that was 8 to 9 mm and biopsied. The remainder of the post bulbar duodenum, ampulla and duodenal bulb were normal with normal mucosa and conniventes. There was some mild Harpreet's gland hypertrophy of the duodenal bulb. The scope was withdrawn through a normal duodenal bulb and pylorus into the stomach. There was gastric sleeve anatomy with reduced luminal diameter of the proximal stomach. There was mild reactive gastropathy and biopsies were taken along the lesser curvature. There was a small 1 to 2 cm hiatal hernia. The scope was then withdrawn into the esophagus. There was no evidence of reflux esophagitis or Alejo's. There were no strictures, rings or masses. There was a larger 25 mm proximal esophageal inlet patch. This was biopsied. The remainder of the esophageal mucosa was normal. Impression: 1. Proximal esophageal inlet patch 2. Very small sliding hiatal hernia 3. Gastric sleeve anatomy with mild linear reactive gastropathy 4. Small 8 to 9 mm duodenal submucosal nodule (third portion) Plan: I will follow-up the biopsies. There was no evidence of any significant esophageal mucosal thickening or strictures.
[2024-04-27 14:22] VITALS: BP 119/88; PULSE 90; RESP 18; TEMP 36.3; O2SAT 96
[2024-04-27 14:30] VITALS: BP 130/78; PULSE 78; RESP 18; O2SAT 96
[2024-04-27 14:40] VITALS: BP 120/78; PULSE 74; RESP 18; O2SAT 95
[2024-04-27 14:51] VITALS: BP 108/73; PULSE 77; RESP 18; O2SAT 93
[2024-04-30 13:57] LABS: POC Glucose,Bedside 98 (70-110)
== END 2024-04-27 14:53 | disposition home or self-care (01) ==
PROVIDERS: PCP Family Medicine; Visit Provider Internal Medicine Gastroenterology
PROC: 0DJ08ZZ Inspection of Upper Intestinal Tract, Via Natural or Artificial Opening Endoscopic (ICD-10-PCS; CPT 43239; principal; 2024-04-27 13:30)
DX: K31.89 Other diseases of stomach and duodenum (principal); K44.9 Diaphragmatic hernia without obstruction or gangrene; K31.9 Disease of stomach and duodenum, unspecified; D13.2 Benign neoplasm of duodenum; R93.3 Abnormal findings on diagnostic imaging of other parts of digestive tract; K22.89 Other specified disease of esophagus
CPT/HCPCS: 43239; 82962; J7120